=== PATIENT | female | born 1940 | race Caucasian/White ===

== ENCOUNTER → 2016-08-21 | Outpatient (CLI) | payer MEDICARE ==
--- NOTE | 2016-08-24 12:22 | MR ---
EXAMINATION TYPE: MR brain wo con DATE OF EXAM: 08/21/2016 COMPARISON: NONE HISTORY: Dizziness, lightheaded, hx breast ca 2014 T1-weighted sagittal, T2, FLAIR, and diffusion axial, and T2 coronal coronal views of the brain are s ubmitted. There is no evidence of acute ischemia. There is a cystic lesion within the right parotid gland measu ring 8 mm. There are diffuse changes throughout the white matter bilaterally with multifocal and confluent areas of signal within the white matter. The largest area seen in the left parietal lobe near the temporal parietal junction measuring 1.1 cm. No midline shift or mass effect. Lack of contrast administration limits assessment for mass. Grossly no cerebellopontine angle lesion. Abnormal signal within the adan is most typical remote ischemic demian nge. There is a nasal septal deviation. Craniocervical junction maintained. Sella turcica has a normal appearance. No cerebellopontine angle mass. IMPRESSION: 1. No acute intracranial process. 2. Diffuse white matter changes in a nonspecific pattern. Differential diagnosis includes remote micr ovascular ischemia. Other etiologies including demyelinating process not entirely excluded. 3. 8mm right parotid gland cyst.
== END | disposition home or self-care (01) ==
LOC: RADMRIMAIN 15:00
PROVIDERS: ATTEND Family Medicine
DX: R90.89 Other abnormal findings on diagnostic imaging of central nervous system (principal); R42 Dizziness and giddiness
CPT/HCPCS: 70551